=== PATIENT | male | born 1980 | race Caucasian/White ===

== ENCOUNTER → 2020-11-23 09:17 | Outpatient (CLI) | payer BC, SELFPAY ==
[2020-11-23 10:09] LABS: Absolute Lymphocyte Count 1.83 X10^3/uL (0.83-4.51); Absolute Neutrophil Count 4.1 X10^3/uL (2.0-7.7); Basophil# 0.05 X10^3/uL; Basophil% 0.8 % (0-1); Eosinophils% 1.5 % (0-5); Hematocrit 43.1 % (40-54); Hemoglobin 14.6 g/dL (13.0-16.5); Lymphocyte # 1.83 X10^3/ul (4.0); Lymphocyte % 27.9 % (19-41); Mean Corp Hgb Conc 33.9 g/dL (32-36); Mean Corpuscular Hgb 27.9 pg (27.0-32.0); Mean Corpuscular Volume 82.4 fL (80-94); Mean Platelet Vol. 8.7 fl (6.2-12.0); Monocyte# 0.46 X10^3/uL; NRBC Flagged by Analyzer 0 % (0-5); Neutrophil # 4.11 X10^3/uL (2.7-7.7); Neutrophil % 62.5 % (47-70); Platelet Count 228 K/mm3 (150-450); RBC Distribution Width CV 12.5 % (11.6-14.6); RBC Distribution Width SD 37.5 fl (35.1-43.9); Red Blood Count 5.23 M/mm3 (4.6-6.2); White Blood Count 6.6 K/mm3 (4.4-11.0)
[2020-11-23 10:33] LABS: AST(SGOT) 17 U/L (15-37); Alanine Aminotransfer ALT/SGPT 25 U/L (16-61); Albumin, Serum 3.6 g/dL (3.2-5.0); Alkaline Phosphatase 54 U/L (45-117); Anion Gap 6 (5-15); BUN 20 mg/dL (7-18); BUN/Creat Ratio 22.8 RATIO (10-20); Bilirubin, Direct 0.28 mg/dL (0.00-0.30); Calcium,Total 9.3 mg/dL (8.5-10.1); Chloride 106 mmol/L (98-107); Creatinine, Serum 0.88 mg/dL (0.70-1.30); EST Glomerular Filtration Rate 102 mL/min (>60); Est Glom Filt Rate - Afr Amer 123 mL/min (>60); Globulin 3.8 g/dL (2.2-4.2); Glucose 125 mg/dL (74-106); Potassium 3.9 mmol/L (3.5-5.1); Protein, Total 7.4 g/dL (6.4-8.2); Sodium Level 140 mmol/L (136-145)
[2020-11-23 11:06] LABS: Hepatitis B Surface Antibody Non-Reactive; Hepatitis B Surface Antigen Non-Reactive (Nonreactive); Hepatitis C Antibody Non-Reactive (Nonreactive)
[2020-11-29 03:06] LABS: QNTFERON TB Mitogen Value > 10.00 IU/mL (.); QNTFERON TB Nil Value 0.05 IU/mL (.); QNTFERON TB1+ Ag Value 0.21 IU/mL (.); QNTFERON TB2+ Ag Value 0.55 IU/mL (.)
[2020-11-29 14:56] LABS: Hepatitis B Core Ab Total Negative (Negative); QNTIFERON TB Positive Criteria Positive (Negative)
== END ==
PROVIDERS: Referring Provider Dermatology; Visit Provider Dermatology
DX: L40.0 Psoriasis vulgaris (principal); Z79.899 Other long term (current) drug therapy
CPT/HCPCS: 36415; 80048; 80076; 85025; 86480; 86704; 86706; 86803; 87340

== ENCOUNTER → 2022-09-26 | Outpatient (CLI) | payer BC, SELFPAY ==
[2022-09-29 12:08] LABS: QNTFERON TB Mitogen Value > 10.00 IU/mL (.); QNTFERON TB Nil Value 0.02 IU/mL (.); QNTFERON TB1+ Ag Value 0.05 IU/mL (.); QNTFERON TB2+ Ag Value 0.06 IU/mL (.)
[2022-09-29 14:21] LABS: QNTIFERON TB Positive Criteria Negative (Negative)
== END | disposition home or self-care (01) ==
LOC: MTLAB 09:15
PROVIDERS: Referring Provider Dermatology; Visit Provider Dermatology
DX: L40.0 Psoriasis vulgaris (principal); Z79.899 Other long term (current) drug therapy
CPT/HCPCS: 36415; 86480

== ENCOUNTER → 2025-09-09 | Outpatient (CLI) | payer BC, SELFPAY ==
--- OUTSIDE RECORDS SUMMARY | 2025-09-09 09:17 | XMS RPT_ITS | CCD ---
Author Organization [facility] Inform ion Partnership [facility] Care Team Providers Care Clinical Resource Director Name Role Phone BALVALERY INGRAM E. Unavailable Unavailable PHYSICIAN, NONE Unavailable Unavailable BALVALERY INGRAM EAlex Unavailable Unavailable PHYSICIAN, NONE Unavailable Unavailable Unavailable Primary Care Provider Unavailabl e Unavailable Primary Care Provider UnavailTASIA Peterson Attending Unavailable PHYSICIAN, NONE Primary Care Unavailable MAU TRAN MD Attending Unavailable MAU TRAN MD Primary Care Unavailable MAU TRAN MD Attending Unavailable MAU TRAN MD Primary Care Unavailable MAU TRAN MD Attending Unavailable MAU TRAN MD Primary Care Unavailable MAU TRAN MD Attending Unavailable Medications Current Medications Medication Drug Class(es) Dates Sig (Normalized) Sig (Original) [id number] 200 actuat albuterol 0.09 mg/actuat metered dose inhaler (1 source) beta2-Adrenergic Agonist Start: 1 take 2 puff(s) by inhalation every four hours as needed for wheezing albuterol HFA (PROVENTIL HFA) 90 mcg/actuation inhaler Indications: Sinobronchitis Inhale 2 Puffs as instructed every 4 hours as needed for wheezing/shortness of breath. 8 g 0 09/18/2021 Active amoxicillin 875 mg oral tablet (1 source) Penicillin-class Antibacterial Start: 4 End: 4 take 1 tablet by mouth twice daily amoxicillin (AMOXIL) 875 mg tablet Indications: Sinobronchitis Take 1 tablet by mouth two times a day for 10 days. 20 tablet 0 01/29/2024 02/08/2024 Active benzonatate 100 mg oral capsule (1 source) Non-narcotic Antitussive Start: 4 End: 4 take 2 capsules by mouth three times daily as needed benzonatate (TESSALON PERLES) 100 mg capsule Indications: Sinobronchitis Take 2 capsules by mouth three times a day as needed for up to 7 days. 42 capsule 0 01/29/2024 02/05/2024 Active chlorpheniramine maleate 4 mg oral tablet (1 source) Histamine-1 Receptor Antagonist Start: 4 End: 4 take 1 tablet by mouth every six hours as needed chlorpheniramine (CHLORTRIMETON) 4 mg tablet Indications: Sinobronchitis Take 1 tablet by mouth every 6 hours as needed for up to 7 days. 28 tablet 0 01/29/2024 02/05/2024 Active Clobetasol Prop-Niacinamide 0.05-4 % OINT (1 source) Clobetasol Prop-Niacinamide 0.05-4 % OINT Apply topically daily As needed 0 Active fluocinonide 0.5 mg/ml topical solution (1 source) Corticosteroid fluocinonide (LIDEX) 0.05 % external solution Apply topically daily Apply topically daily prn 0 Active 1 ml ixekizumab 80 mg/ml auto-injector (1 source) Interleukin-17A Antagonist Start: 4 TALTZ AUTOINJECTOR 80 mg/mL pen tacrolimus 0.001 mg/mg topical ointment (2 sources) Calcineurin Inhibitor Immunosuppressant tacrolimus (PROTOPIC) 0.1 % ointment Apply to affected area. 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 Proteinuria) CKD 2 Kidney damage with mild loss 60-89 of kidney function CKD 3a Mild to moderate loss of kidney 45-59 function CKD 3b Moderate to severe loss of 30-44 of kindey function CKD 4 Severe loss of kidney function 15-29 CKD 5 Kidney failure <15 Note: (go live 2024) the eGFR calculation was updated to the 2020 CKD-EPI creatinine equation without a race factor to calculate the eGFR results. Performed By: #### G FR, BMP #### [address] [place] [address] #### A1C, TSH #### [place] [address] A1C 08-04-2025 Glucose [Mass/Vol] 203 mg/dL Normal [facility] Comment on above: Result Comment: Estimated Average Glucos e calculated by equation ((28.7xA1C)-46.7) Estimated average glucose (eAG) is a calculated value from Hemoglobin A1C and is installation service representative of the average blood glucose level in the last 2-3 month period. Normal range: less than 114 mg/dL Performed By: #### G FR, BMP #### Kim G[address] [place] [address] #### A1C, TSH #### [place] [address] HbA1c (Bld) [Mass fraction] 8.7 % High 4.0-6.0 [facility] Comment on above: Performed By: #### GFR, BMP #### Kim Guf[address] [place] [id number] #### A1C, TSH #### [place] [address] BMPon 08-04-2025 BUN/Creatinine Ratio 31 ratio High 7-27 [facility] Comment on above: Performed By: #### GFR, BMP #### Kim [address] [place], [place] [address] #### A1C, TSH #### [facility] [address] [place] [address] Calcium [Mass/Vol] 9.3 mg/dL Normal 8.4-10.2 [facility] Comment on above: Performed By: #### GFR, BMP #### Kim Guf[address] [place] [id number] #### A1C, TSH #### [facility] [address] [place] [address] Chloride [Moles/Vol] 99 mmol/L Normal 98-107 [facility] Comment on above: Performed By: #### GFR, BMP #### Kim Guffey [address] [place] [id number] #### A1C, TSH #### [address] [address] CO2 [Moles/Vol] 31 mmol/L High 22-29 [facility] Comment on above: Performed By: #### GFR, BMP #### Kim Guf[address] [place] [id number] #### A1C, TSH #### [address] [address] Creatinine [Mass/Vol] 0.72 mg/dL Normal 0.67-1.17 [facility] Comment on above: Performed By: #### GFR, BMP #### Kim Guf[address] [place] [id number] #### A1C, TSH #### [address] [address] Electrolyte Balance 7.0 mEq/L Normal 4.0-15.0 [facility] Comment on above: Performed By: #### GFR, BMP #### Kim Guf[address] [place] [id number] #### A1C, TSH #### [address] [address] Glucose [Mass/Vol] 284 mg/dL High 70-105 [facility] Comment on above: Performed By: #### GFR, BMP #### Kim Guf[address] [place] [id number] #### A1C, TSH #### [facility] [address] [place] [address] Potassium [Moles/Vol] 4.1 mmol/L Normal 3.5-5.1 [facility] Comment on above: Performed By: #### GFR, BMP #### Kim Guf[address] [place] [id number] #### A1C, TSH #### [facility] [address] [place] [address] Sodium [Moles/Vol] 137 mmol/L Normal 136-145 [facility] Comment on above: Performed By: #### GFR, BMP #### Kim Guf[address] [place] [id number] #### A1C, TSH #### [place] [address] Urea nitrogen [Mass/Vol] 22 mg/dL High 7-18 [facility] Comment on above: Performed By: #### GFR, BMP #### Kim G[address] [place] [id number] #### A1C, TSH #### [place] [address] TSHon 08-04-2025 TSH 3.355 mIU/mL Normal 0.550-4.78 0 [facility] Comment on above: Performed By: #### GFR, BMP #### Kim [address] [place] [id number] #### A1C, TSH #### [place] [id number] .GFRon 04-29-2025 Estimated Glomerular Filtration Rate 117 ml/min/1.73sqm Normal [facility] Comment on above: Result Comment: Stages of Chronic Kidney Disease (CKD) Stage Description eGFR(ml/min/1.73 sq.m.) CKD 1 Normal kidney function or >=90 normal kindney function with possible kidney damage (ex. Proteinuria) CKD 2 Kidney damage with mild loss 60-89 of kidney function CKD 3a Mild to moderate loss of kidney 45-59 function CKD 3b Moderate to severe loss of 30-44 of kindey function CKD 4 Severe loss of kidney function 15-29 CKD 5 Kidney failure <15 Note: (go live 2024) the eGFR calculation was updated to the 2020 CKD-EPI creatinine equation without a race factor to calculate the eGFR results. Performed By: #### G FR, BMP #### Kim Guf[address] [place] [id number] #### A1C, TSH #### [place] [address] A1Con 04-29-2025 Glucose [Mass/Vol] 226 mg/dL Normal [facility] Comment on above: Result Comment: Estimated Average Glucos e calculated by equation ((28.7xA1C)-46.7) Estimated average glucose (eAG) is a calculated value from Hemoglobin A1C and is installation service representative of the average blood glucose level in the last 2-3 month period. Normal range: less than 114 mg/dL Performed By: #### G FR, BMP #### Kim Guf[address] [place] [address] #### A1C, TSH #### [place] [address] HbA1c (Bld) [Mass fraction] 9.5 % High 4.0-6.0 [facility] Comment on above: Performed By: #### GFR, BMP #### Kim Guf[address] [place] [id number] #### A1C, TSH #### [place] [address] BMPon 04-29-2025 BUN/Creatinine Ratio 28 ratio High 7-27 [facility] Comment on above: Performed By: #### GFR, BMP #### Kim Guf[address] [place] [address] #### A1C, TSH #### [place] [address] Calcium [Mass/Vol] 9.1 mg/dL Normal 8.4-10.2 [facility] Comment on above: Performed By: #### GFR, BMP #### Kim [address] [place], [place] [address] #### A1C, TSH #### [facility] [address] [place] [address] Chloride [Moles/Vol] 102 mmol/L Normal 98-107 [facility] Comment on above: Performed By: #### GFR, BMP #### Kim Guffey [address] [place] [id number] #### A1C, TSH #### [facility] [address] [place] [address] CO2 [Moles/Vol] 28 mmol/L Normal 22-29 [facility] Comment on above: Performed By: #### GFR, BMP #### Kim Guffey [address] [place] [id number] #### A1C, TSH #### [address] [address] Creatinine [Mass/Vol] 0.67 mg/dL Normal 0.67-1.17 [facility] Comment on above: Performed By: #### GFR, BMP #### Kim Guffe[address] [place] [id number] #### A1C, TSH #### [address] [address] Electrolyte Balance 7.0 mEq/L Normal 4.0-15.0 [facility] Comment on above: Performed By: #### GFR, BMP #### Kim Guf[address] [place] [id number] #### A1C, TSH #### [address] [address] Glucose [Mass/Vol] 262 mg/dL High 70-105 [facility] Comment on above: Performed By: #### GFR, BMP #### Kim Guffe[address] [place] [id number] #### A1C, TSH #### [address] [address] Potassium [Moles/Vol] 4.1 mmol/L Normal 3.5-5.1 [facility] Comment on above: Performed By: #### GFR, BMP #### Kim [address] [place], [place] [address] #### A1C, TSH #### [facility] [address] [place] [address] Sodium [Moles/Vol] 137 mmol/L Normal 136-145 [facility] Comment on above: Performed By: #### GFR, BMP #### Kim Guffey [address] [place] [id number] #### A1C, TSH #### [facility] [address] [place] [address] Urea nitrogen [Mass/Vol] 19 mg/dL High 7-18 [facility] Comment on above: Performed By: #### GFR, BMP #### Kim G[address] [place], [place] [address] #### A1C, TSH #### [address] [address] .GFRon 01-26-2025 Estimated Glomerular Filtration Rate 116 ml/min/1.73sqm Normal [facility] Comment on above: Result Comment: Stages of Chronic Kidney Disease (CKD) Stage Description eGFR(ml/min/1.73 sq.m.) CKD 1 Normal kidney function or >=90 normal kindney function with possible kidney damage (ex. Proteinuria) CKD 2 Kidney damage with mild loss 60-89 of kidney function CKD 3a Mild to moderate loss of kidney 45-59 function CKD 3b Moderate to severe loss of 30-44 of kindey function CKD 4 Severe loss of kidney function 15-29 CKD 5 Kidney failure <15 Note: (go live 2024) the eGFR calculation was updated to the 2020 CKD-EPI creatinine equation without a race factor to calculate the eGFR results. Performed By: #### A 1C #### [address] [address] #### CMP, GFR #### Kim [address] [place], [place] [address] A1Con 01-26-2025 Glucose [Mass/Vol] 269 mg/dL Normal [facility] Comment on above: Result Comment: Estimated Average Glucos e calculated by equation ((28.7xA1C)-46.7) Estimated average glucose (eAG) is a calculated value from Hemoglobin A1C and is installation service representative of the average blood glucose level in the last 2-3 month period. Normal range: less than 114 mg/dL Performed By: #### A 1C #### [place] [address] #### CMP, GFR #### Kim Guf[address] [place], [place] [address] HbA1c (Bld) [Mass fraction] 11.0 % High 4.0-6.0 [facility] Comment on above: Performed By: #### A1C #### [place] [address] #### CMP, GFR #### Kim G[address] [place], [place] [address] CMPon 01-26-2025 Albumin Level 3.5 G/dL Normal 3.5-5.0 [facility] Comment on above: Performed By: #### A1C #### [place] [address] #### CMP, GFR #### Kim Guf[address] [place], [place] [address] Albumin/Globul in [Mass ratio] 1.0 {ratio} Low 1.1-2.5 [facility] Comment on above: Performed By: #### A1C #### [place] [address] #### CMP, GFR #### Kim Guf[address] [place], [place] [address] ALP [Catalytic activity/Vol] 62 U/L Normal 40-135 [facility] Comment on above: Performed By: #### A1C #### [place] [address] #### CMP, GFR #### Kim [address] [place], [place] [address] ALT [Catalytic activity/Vol] 29 U/L Normal 16-63 [facility] Comment on above: Performed By: #### A1C #### [place] [address] #### CMP, GFR #### Kim G[address] [place], [place] [address] AST [Catalytic activity/Vol] 16 U/L Normal 10-40 [facility] Comment on above: Performed By: #### A1C #### [place] [address] #### CMP, GFR #### Kim [address] [place], [place] [address] Bili Total 1.6 mg/dL High 0.2-1.0 [facility] Comment on above: Result Comment: Use of this assay is not recommended for patients undergoing treatment with eltrombopag due to the potential for falsely elevated results. Performed By: #### A 1C #### [place] [address] #### CMP, GFR #### Kim [address] [place], [place] [address] BUN/Creatinine Ratio 23 ratio Normal 7-27 [facility] Comment on above: Performed By: #### A1C #### [place] [address] #### CMP, GFR #### Kim G[address] [place], [place] [address] Calcium [Mass/Vol] 9.5 mg/dL Normal 8.4-10.2 [facility] Comment on above: Performed By: #### A1C #### [place] [address] #### CMP, GFR #### Kim Guf[address] [place], [place] [address] Chloride [Moles/Vol] 101 mmol/L Normal 98-107 [facility] Comment on above: Performed By: #### A1C #### [place] [address] #### CMP, GFR #### Kim [address] [place], [place] [address] CO2 [Moles/Vol] 28 mmol/L Normal 22-29 [facility] Comment on above: Performed By: #### A1C #### [facility] [address] [place] [address] #### CMP, GFR #### Kim [address] [place], [place] [address] Creatinine [Mass/Vol] 0.69 mg/dL Normal 0.67-1.17 [facility] Comment on above: Performed By: #### A1C #### [facility] [address] [place] [address] #### CMP, GFR #### Kim [address] [place], [place] [address] Electrolyte Balance 10.0 mEq/L Normal 4.0-15.0 [facility] Comment on above: Performed By: #### A1C #### [place] [address] #### CMP, GFR #### Kim Guf[address] [place], [place] [address] Globulin 3.6 G/dL Normal 2.7-4.4 [facility] Comment on above: Performed By: #### A1C #### [facility] [address] [place] [address] #### CMP, GFR #### Kim G[address] [place], [place] [address] Glucose [Mass/Vol] 312 mg/dL High 70-105 [facility] Comment on above: Performed By: #### A1C #### [place] [address] #### CMP, GFR #### Kim G[address] [place], [place] [address] Potassium [Moles/Vol] 4.2 mmol/L Normal 3.5-5.1 [facility] Comment on above: Performed By: #### A1C #### [facility] [address] [place] [address] #### CMP, GFR #### Kim Guf[address] [place], [place] [address] Sodium [Moles/Vol] 139 mmol/L Normal 136-145 [facility] Comment on above: Performed By: #### A1C #### [facility] [address] [place] [address] #### CMP, GFR #### Kim Guf[address] [place], [place] [address] Total Protein 7.1 G/dL Normal 6.4-8.2 [facility] Comment on above: Performed By: #### A1C #### [facility] [address] [place] [address] #### CMP, GFR #### Kim Guf[address] [place], [place] [address] Urea nitrogen [Mass/Vol] 16 mg/dL Normal 7-18 [facility] Comment on above: Performed By: #### A1C #### [facility] [address] [place] [address] #### CMP, GFR #### Kim G[address] [place], [place] [address] MALBRon 01-26-2025 U Creatinine 228.6 mg/dL Normal [facility] Comment on above: Performed By: #### GFR, BMP #### Kim [address] [place], [place] [address] #### A1C, TSH #### [address] [address] U Microalb 25.9 mg/L Normal [facility] Comment on above: Performed By: #### GFR, BMP #### Kim [address] [place], [place] [address] #### A1C, TSH #### [facility] [address] [place] [address] U Ratio Alb/Cre 11.3 mg/G Normal 0.0-30.0 [facility] Comment on above: Performed By: #### GFR, BMP #### Kim [address] [place], [place] [address] #### A1C, TSH #### [address] [address] .Auto Diffon 10-27-2024 Basophil, Absolute 0.1 10 3/mcL Normal 0.0-0.3 [facility] Comment on above: Performed By: #### ADIFF, LIPID, ANEU, C MP, GFR, CBC #### Kim [address] [place], [place] [address] #### A1C, HCV1, HIV, TSH #### [address] [address] Basophils/100 WBC (Bld) 0.9 % Normal 0.0-2.5 [facility] Comment on above: Performed By: #### ADIFF, LIPID, ANEU, C MP, GFR, CBC #### Kim Guf[address] [place] [address] #### A1C, HCV1, HIV, TSH #### [address] [address] Eosinophil, Absolute 0.1 10 3/mcL Normal 0.0-0.7 [facility] Comment on above: Performed By: #### ADIFF, LIPID, ANEU, C MP, GFR, CBC #### [facility] [address] [place] [address] #### A1C, HCV1, HIV, TSH #### [address] [address] Eosinophils/10 0 WBC (Bld) 1.2 % Normal 0.0-6.0 [facility] Comment on above: Performed By: #### ADIFF, LIPID, ANEU, C MP, GFR, CBC #### Kim Guf[address] [place] [address] #### A1C, HCV1, HIV, TSH #### [facility] [address] [place] [address] Lymphocyte, Absolute 1.6 10 3/mcL Normal 0.9-4.3 [facility] Comment on above: Performed By: #### ADIFF, LIPID, ANEU, C MP, GFR, CBC #### Kim Guffey [address] [place] [phone] #### A1C, HCV1, HIV, TSH #### [address] [address] Lymphocytes/10 0 WBC (Bld) 24.9 % Normal 20.0-40.0 [facility] Comment on above: Performed By: #### ADIFF, LIPID, ANEU, C MP, GFR, CBC #### Kim Guf[address] [place], [place] [address] #### A1C, HCV1, HIV, TSH #### [address] [address] Monocyte, Absolute 0.5 10 3/mcL Normal 0.1-1.4 [facility] Comment on above: Performed By: #### ADIFF, LIPID, ANEU, C MP, GFR, CBC #### Kim Guffey [address] [place] [phone] #### A1C, HCV1, HIV, TSH #### [address] [address] Monocytes/100 WBC (Bld) 7.6 % Normal 2.0-13.0 [facility] Comment on above: Performed By: #### ADIFF, LIPID, ANEU, C MP, GFR, CBC #### Kim Guffey [address] [place] [phone] #### A1C, HCV1, HIV, TSH #### [address] [address] Neutrophils/10 0 WBC (Bld) 65.4 % Normal 50.0-75.0 [facility] Comment on above: Performed By: #### ADIFF, LIPID, ANEU, C MP, GFR, CBC #### Kim Guffey [address] [place] [phone] #### A1C, HCV1, HIV, TSH #### [address] [address] .GFRon 10-27-2024 Estimated Glomerular Filtration Rate 105 ml/min/1.73sqm Normal [facility] Comment on above: Result Comment: Stages of Chronic Kidney Disease (CKD) Stage Description eGFR(ml/min/1.73 sq.m.) CKD 1 Normal kidney function or >=90 normal kindney function with possible kidney damage (ex. Proteinuria) CKD 2 Kidney damage with mild loss 60-89 of kidney function CKD 3a Mild to moderate loss of kidney 45-59 function CKD 3b Moderate to severe loss of 30-44 of kindey function CKD 4 Severe loss of kidney function 15-29 CKD 5 Kidney failure <15 Note: (go live 2024) the eGFR calculation was updated to the 2020 CKD-EPI creatinine equation without a race factor to calculate the eGFR results. Performed By: #### G FR, BMP #### Kim Guf[address] [place] [address] #### A1C, TSH #### [place] [address] .NEUABSon 10-27-2024 Neutrophil, Absolute 4.1 10 3/mcL Normal 2.3-8.1 [facility] Comment on above: Performed By: #### ADIFF, LIPID, ANEU, C MP, GFR, CBC #### [facility] [address] [place] [address] #### A1C, HCV1, HIV, TSH #### [place] [address] A1Con 10-27-2024 Glucose [Mass/Vol] 321 mg/dL Normal [facility] Comment on above: Result Comment: Estimated Average Glucos e calculated by equation ((28.7xA1C)-46.7) Estimated average glucose (eAG) is a calculated value from Hemoglobin A1C and is installation service representative of the average blood glucose level in the last 2-3 month period. Normal range: less than 114 mg/dL Performed By: #### G FR, BMP #### Kim Guffey [address] [place] [address] #### A1C, TSH #### [place] [address] HbA1c (Bld) [Mass fraction] 12.8 % High 4.0-6.0 [facility] Comment on above: Performed By: #### GFR, BMP #### Kim Guffey [address] [place] [phone] #### A1C, TSH #### [place] [address] CBCon 02-04-2025 Erythrocyte distribution width (RBC) [Ratio] 12.6 % Normal 11.5-15.5 [facility] Comment on above: Performed By: #### ADIFF, LIPID, ANEU, C MP, GFR, CBC #### Hamer Guffey [address] [place] [phone] #### A1C, HCV1, HIV, TSH #### [place] [address] Hematocrit (Bld) [Volume fraction] 46.6 % Normal 40.0-52.0 [facility] Comment on above: Performed By: #### ADIFF, LIPID, ANEU, C MP, GFR, CBC #### [facility] [address] [place] [address] #### A1C, HCV1, HIV, TSH #### [place] [address] Hgb 15.8 G/dL Normal 13.0-17.5 [facility] Comment on above: Performed By: #### ADIFF, LIPID, ANEU, C MP, GFR, CBC #### [facility] [address] [place] [address] #### A1C, HCV1, HIV, TSH #### [place] [address] MCH (RBC) [Entitic mass] 28.1 pg Normal 27.0-33.0 [facility] Comment on above: Performed By: #### ADIFF, LIPID, ANEU, C MP, GFR, CBC #### Kim Guffey [address] [place] [address] #### A1C, HCV1, HIV, TSH #### [place] [address] MCHC 33.9 G/dL Normal 32.0-36.0 [facility] Comment on above: Performed By: #### ADIFF, LIPID, ANEU, C MP, GFR, CBC #### [facility] [address] [place] [phone] #### A1C, HCV1, HIV, TSH #### [place] [id number] MCV (RBC) [Entitic vol] 82.9 fL Normal 81.0-100.0 [facility] Comment on above: Performed By: #### ADIFF, LIPID, ANEU, C MP, GFR, CBC #### Kim Guffe[address] [place] [address] #### A1C, HCV1, HIV, TSH #### [place] [address] Platelet 197 10 3/mcL Normal 150-450 [facility] Comment on above: Performed By: #### ADIFF, LIPID, ANEU, C MP, GFR, CBC #### [facility] [address] [place] [address] #### A1C, HCV1, HIV, TSH #### [place] [address] Platelet mean volume (Bld) [Entitic vol] 7.4 fL Normal 6.4-10.5 [facility] Comment on above: Performed By: #### ADIFF, LIPID, ANEU, C MP, GFR, CBC #### [facility] [address] [place] [address] #### A1C, HCV1, HIV, TSH #### [place] [address] RBC 5.62 10 6/mcL Normal 4.50-6.00 [facility] Comment on above: Performed By: #### ADIFF, LIPID, ANEU, C MP, GFR, CBC #### [facility] [address] [place] [address] #### A1C, HCV1, HIV, TSH #### [place] [address] WBC 6.2 10 3/mcL Normal 4.5-10.8 [facility] Comment on above: Performed By: #### ADIFF, LIPID, ANEU, C MP, GFR, CBC #### [facility] [address] [place] [address] #### A1C, HCV1, HIV, TSH #### [address] [address] [facility] Albumin Level 3.5 G/dL Normal 3.5-5.0 [facility] Comment on above: Performed By: #### GFR, BMP #### Kim Guffey [address] [place] [id number] #### A1C, TSH #### [place] [address] Albumin/Globul in [Mass ratio] 1.0 {ratio} Low 1.1-2.5 [facility] Comment on above: Performed By: #### GFR, BMP #### Kim Guffey [address] [place] [phone] #### A1C, TSH #### [place] [address] ALP [Catalytic activity/Vol] 60 U/L Normal 40-135 [facility] Comment on above: Performed By: #### GFR, BMP #### Kim Guffey [address] [place] [address] #### A1C, TSH #### [place] [id number] ALT [Catalytic activity/Vol] 41 U/L Normal 16-63 [facility] Comment on above: Performed By: #### GFR, BMP #### Kim Guffey [address] [place] [id number] #### A1C, TSH #### [place] [id number] AST [Catalytic activity/Vol] 24 U/L Normal 10-40 [facility] MASSILLON Comment on above: Performed By: #### GFR, BMP #### Kim Guffey [address] [place] [id number] #### A1C, TSH #### [place] [id number] Bili Total 1.6 mg/dL High 0.2-1.0 KIM MASSILLON Comment on above: Result Comment: Use of this assay is not recommended for patients undergoing treatment with eltrombopag due to the potential for falsely elevated results. Performed By: #### G FR, BMP #### Kim Guffey [address] [place] [id number] #### A1C, TSH #### [place] [address] BUN/Creatinine Ratio 15 ratio Normal 7-27 KIM MASSILLON Comment on above: Performed By: #### GFR, BMP #### Kim Guffey [address] [place] [id number] #### A1C, TSH #### [place] [address] Calcium [Mass/Vol] 9.2 mg/dL Normal 8.4-10.2 KIM MASSILLON Comment on above: Performed By: #### GFR, BMP #### Kim Guffey [address] [place] [id number] #### A1C, TSH #### [place] [address] Chloride [Moles/Vol] 99 mmol/L Normal 98-107 KIM MASSILLON Comment on above: Performed By: #### GFR, BMP #### Kim Guffey [address] [place] [id number] #### A1C, TSH #### [place] [id number] CO2 [Moles/Vol] 29 mmol/L Normal 22-29 KIM MASSILLON Comment on above: Performed By: #### GFR, BMP #### Kim Guffey [address] [place] [address] #### A1C, TSH #### [place] [id number] Creatinine [Mass/Vol] 0.92 mg/dL Normal 0.70-1.30 KIM MASSILLON Comment on above: Result Comment: Testing performed on [employer] Dimension EXL analyzer using a modified kinetic Sivkaumar technique. Performed By: #### G FR, BMP #### Kim Guffey [address] [place] [id number] #### A1C, TSH #### [facility] [address] [place], [place] [address] Electrolyte Balance 8.0 mEq/L Normal 4.0-15.0 KIM MASSILLON Comment on above: Performed By: #### GFR, BMP #### Kim Guffey [address] [place], [place] [address] #### A1C, TSH #### [facility] [address] [place] [address] Globulin 3.6 G/dL Normal KIM MASSILLON Comment on above: Performed By: #### GFR, BMP #### Kim Guffey [address] [place] [id number] #### A1C, TSH #### [facility] [address] [place] [address] Glucose [Mass/Vol] 369 mg/dL High 70-105 KIM MASSILLON Comment on above: Performed By: #### GFR, BMP #### Kim Guffey [address] [place] [id number] #### A1C, TSH #### [facility] [address] [place] [address] Potassium [Moles/Vol] 4.3 mmol/L Normal 3.5-5.1 KIM MASSILLON Comment on above: Performed By: #### GFR, BMP #### Kim Guffey [address] [place] [id number] #### A1C, TSH #### [address] [address] Sodium [Moles/Vol] 136 mmol/L Normal 136-145 KIM MASSILLON Comment on above: Performed By: #### GFR, BMP #### Kim Guffey [address] [place], [place] [address] #### A1C, TSH #### [facility] [address] [place] [address] Total Protein 7.1 G/dL Normal 6.4-8.2 KIM MASSILLON Comment on above: Performed By: #### GFR, BMP #### Kim Guffey [address] [place], [place] [address] #### A1C, TSH #### [address] [address] Urea nitrogen [Mass/Vol] 14 mg/dL Normal 7-18 [facility] Comment on above: Performed By: #### GFR, BMP #### Kim Guffey [address] [place] [address] #### A1C, TSH #### [facility] [address] [place] [address] HCVon 10-27-2024 Hep C Ab Non-Reactive Normal Non-Reacti ve [facility] Comment on above: Performed By: #### GFR, BMP #### Kim Guffey [address] [place] [address] #### A1C, TSH #### [place] [address] Hep C Ab Int Normal [facility] Comment on above: Result Comment: Nonreactive: Samples wit h a value < 0.80 are considered nonreactive (negative) for antibodies to HCV. A negative test result does not exclude the possibility of exposure to or infection with HCV. HCV antibodies may be undetectable in some stages of the infection and in some clinical conditions. See Interp Performed By: #### G FR, BMP #### Kim Guffey [address] [place] [address] #### A1C, TSH #### [place] [address] HIVon 10-27-2024 HIV 1/2 Ab Non-Reactive Normal Non-Reacti [facility] Comment on above: Result Comment: Specimen is negative for anti-HIV-1 and anti-HIV-2. Performed By: #### G FR, BMP #### Kim Guffey [address] [place] [address] #### A1C, TSH #### [place] [address] LIPIDon 10-27-2024 Cholesterol [Mass/Vol] 148 mg/dL Normal 0-200 [facility] Comment on above: Result Comment: Cholesterol Reference In terval: Less than 200 Desirable 200-239 Borderline high risk 240 and above High risk Performed By: #### G FR, BMP #### Kim Guffey [address] [place] [id number] #### A1C, TSH #### [facility] [address] [place] [address] Cholesterol in HDL [Mass/Vol] 52 mg/dL Normal 40-60 KIM MASSILLON Comment on above: Performed By: #### GFR, BMP #### Kim Guffey [address] [place] [id number] #### A1C, TSH #### [facility] [address] [place], [place] [id number] Cholesterol in LDL [Mass/Vol] 75 mg/dL Normal 0-130 KIM MASSILLON Comment on above: Performed By: #### GFR, BMP #### Kim Guffey [address] [place] [address] #### A1C, TSH #### [place] [address] Triglyceride [Mass/Vol] 106 mg/dL Normal 0-150 KIM MASSILLON Comment on above: Performed By: #### GFR, BMP #### Kim Guffey [address] [place] [address] #### A1C, TSH #### [place] [address] TSHon 10-27-2024 TSH 2.544 mIU/mL Normal 0.550-4.78 0 KIM MASSILLON Comment on above: Performed By: #### GFR, BMP #### Kim Guffey [address] [place] [address] #### A1C, TSH #### [place] [address] CNOVon 01-29-2024 CNOV Office Visit ([facility] ) JEFFREY SOTO ([id number]) 1980 M Date Time Provider Department 01/29/24 11:55 AM TASIA CARDOZA [facility] During your visit today, we recorded the following information about you: Temperature Pulse Respiration Blood pressure 97.1 degrees 87/minute 20/minute 152/100 Weight 176.3 kg Tasia Cardoza DO 01/29/2024 12:55 PM Signed Jeffrey Soto is a 43 year old MALE who presents with Cough (Productive /Discolored //Started 3 days ago ), Chest Congestion (Started 3 days aog), and Breathing Problem (Wheezing /Started 3 days ago /) HPI History reviewed. No pertinent past medical history. There is no problem list on file for this patient. Current Outpatient Medications Medication Sig Dispense Refill TALTZ AUTOINJECTOR 80 mg/mL pen tacrolimus (PROTOPIC) 0.1 % ointment Apply to affected area. amoxicillin (AMOXIL) 875 mg tablet Take 1 tablet by mouth two times a day for 10 days. 20 tablet 0 benzonatate (TESSALON PERLES) 100 mg capsule Take 2 capsules by mouth three times a day as needed for up to 7 days. 42 capsule 0 chlorpheniramine (CHLORTRIMETON) 4 mg tablet Take 1 tablet by mouth every 6 hours as needed for up to 7 days. 28 tablet 0 albuterol HFA (PROVENTIL HFA) 90 mcg/actuation inhaler Inhale 2 Puffs as instructed every 4 hours as needed for wheezing/shortness of breath. (Patient not taking: Reported on 01/29/2024) 8 g 0 No current facility-administered medications for this visit. Social History Tobacco Use Smoking status: Never Smokeless tobacco: Never Vaping Use Vaping Use: Never used Substance Use Topics Alcohol use: Yes Alcohol/week: 6.0 standard drinks of alcohol Types: 6 Cans of beer per week Drug use: Never Alcohol Use: Approximately 3.6 oz/week [which includes 6 Cans of beer per week] Tobacco Use: Never History reviewed. No pertinent family history. Review of Systems Constitutional: Positive for chills, fever and malaise/fatigue. HENT: Positive for congestion, sinus pain and sore throat. Respiratory: Positive for cough, sputum production, shortness of breath and wheezing. All other systems reviewed and are negative. BP 152/100 Pulse 87 Temp (Src) 97.1 (Temporal) Resp 20 Wt 388 lb 9.6 oz (176.3kg) SpO2 96% Physical Exam Nursing note reviewed. Exam conducted with a oakes machine operator present. Constitutional: Appearance: Normal appearance. HENT: Head: Normocephalic. Left Ear: Tympanic membrane normal. Nose: Congestion and rhinorrhea present. Mouth/Throat: Pharynx: Posterior oropharyngeal erythema present. Eyes: Extraocular Movements: Extraocular movements intact. Conjunctiva/sclera: Conjunctivae normal. Pupils: Pupils are equal, round, and reactive to light. Cardiovascular: Rate and Rhythm: Normal rate and regular rhythm. Pulses: Normal pulses. Heart sounds: Normal heart sounds. Pulmonary: Effort: Pulmonary effort is normal. Breath sounds: Normal breath sounds. Abdominal: General: Bowel sounds are normal. Musculoskeletal: General: Normal range of motion. Lymphadenopathy: Cervical: Cervical adenopathy present. Skin: General: Skin is warm. Capillary Refill: Capillary refill takes 2 to 3 seconds. Neurological: General: No focal deficit present. Psychiatric: Mood and Affect: Mood normal. ASSESSMENT/PLAN: 1. Sinobronchitis - ICD9: 473.9, 490, ICD10: J32.9, J40 - AMOXICILLIN 875 MG TABLET - BENZONATATE 100 MG CAPSULE - CHLORPHENIRAMINE 4 MG TABLET Tasia Cardoza Referring Provider: SELF [200] Allergies As of Date: 01/29/2024 (No Known Allergies) Date Reviewed: 01/29/2024 Reviewed by: Tasia Cardoza DO - Fully Assessed Reason for Visit: Cough [28] Cmt: Productive Discolored Started 3 days ago Chest Congestion [236] Cmt: Started 3 days aog Breathing Problem [17] Cmt: Wheezing Started 3 days ago Primary Visit Diagnosis:Sinobronchitis [J32.9, J40] Order(s):amoxicillin (AMOXIL) 875 mg tabletTake 1 tablet by mouth two times a day for 10 days.Disp: 20 tabletRfl: 0 benzonatate (TESSALON PERLES) 100 mg capsuleTake 2 capsules by mouth three times a day as needed for up to 7 days.Disp: 42 capsuleRfl: 0 chlorpheniramine (CHLORTRIMETON) 4 mg tabletTake 1 tablet by mouth every 6 hours as needed for up to 7 days.Disp: 28 tabletRfl: 0 Prescriptions as of 01/29/2024 - TALTZ AUTOINJECTOR 80 mg/mL pen - tacrolimus (PROTOPIC) 0.1 % ointment Apply to affected area. - amoxicillin (AMOXIL) 875 mg tablet Take 1 tablet by mouth two times a day for 10 days. - benzonatate (TESSALON PERLES) 100 mg capsule Take 2 capsules by mouth three times a day as needed for up to 7 days. - chlorpheniramine (CHLORTRIMETON) 4 mg tablet Take 1 tablet by mouth every 6 hours as needed for up to 7 days. - albuterol HFA (PROVENTIL HFA) 90 mcg/actuation inhaler Inhale 2 Puffs as instructed every 4 hours as neede (more content not included)... [facility] DATE OF SERVICE: CHIEF COMPLAINT: Patient seen and evaluated by Yolanda Bragg PA-C for chief complaint of toe laceration. HISTORY OF PRESENT ILLNESS: Patient states he tripped in his garage and caught his foot, stepping on a, he thinks was, car seat. It forcefully pulled his 3rd and 4th toes of his left foot up and back over, hyperextending them to the point where it tore the skin in the creases on the plantar aspect of the 2 toes, so he comes in for evaluation. He denies any other symptoms or complaints, and he states that they are not painful. He is not concerned for any fractures. PAST MEDICAL HISTORY: Reviewed per nursing notes and considered. SOCIAL HISTORY: Denies tobacco. Drinks alcohol weekly. REVIEW OF SYSTEMS: Per HPI, otherwise unremarkable. PHYSICAL EXAMINATION: This is a well-appearing 40-year-old male in no acute distress. His vitals are blood pressure 143/101, pulse 79, respirations 16, afebrile, pulse oximetry 97% on room air. Examination of his left foot, he has wounds noted on the plantar side of his 3rd and 4th toes corresponding with the creases of the interphalangeal joint of each of those digits. The [facility] PATIENT NAME: JEFFREY SOTO Dr. [facility] MEDICAL REC #: [id number] [place] [address] [facility] one on the 3rd toe is larger, measuring 1 cm and deeper with a depth of 1 to 2 mm. Examined in a bloodless field, it extends fully through the epidermal layer, does not extend significantly into subcutaneous tissue. The wound on the plantar aspect of the 4th toe is less than 0.5 cm and through the epidermal layer as well. Also examined in a bloodless field. The rest of the toe is nontender, appears normal with brisk capillary refill less than 2 seconds. Pressure at the end of the toes as well as on the dorsum of the toes does not elicit any pain. Movement of the toes does not elicit pain. The rest of the foot is nontender. Neurovascularly intact. MEDICAL DECISION MAKING: At this point in time, I discussed wound care options with the patient. I do recommend some type of closure of the wound on the 3rd toe. We discussed the benefit and risks of Dermabond versus sutures. The patient opts for Dermabond. We did discuss the increased risk of infection. He recently started an immune modulating medicine for his psoriasis, Cosentyx; therefore, we will place him on prophylactic antibiotics. PROCEDURE: The wound is irrigated copiously with 100 mL by the nurse, another 200 mL of normal saline irrigation performed by myself. The wound was then dried [facility] PATIENT NAME: JEFFREY SOTO Dr. [facility]av[facility] MEDICAL REC #: [id number] [place] [address] [facility] thoroughly, prepped with an alcohol swab, and 3 layers of Dermabond are placed and the wound edges approximated well. The wound on the 4th toe was dressed with bacitracin and dressed with a gauze dressing. Patient tolerated it well. Estimated blood loss minimal. Complications none. DISCHARGE DIAGNOSES: 1. Acute 1-cm laceration left 3rd toe repaired with Dermabond. 2. Chronic psoriasis with immunosuppressive treatment. PLAN: He is prescribed prophylactic Keflex. Instructed on wound care. Keep it dry for at least 7 days and given a referral to establish a PCP. We did discuss his elevated blood pressure, and he is going to follow closely with the medical provider at his work and establish with a PCP. Yolanda Bragg PA-C /[id number] SSI File#: [id number] [facility] PATIENT NAME: JEFFREY SOTO [address] [facility] [address] Benavides MEDICAL REC #: [id number] [place] [address] [facility] END OF DOCUMENT / CHANGE LOG FOLLOWS Last Edited By Elec. Signed By Yolanda Bragg PA-C, Shannon PA-C #QUISH on 04/10/2021 18:49 ET on 04/10/2021 18:49 ET Revision Number - 2 Verified/Reviewed by 04/10/21 1849 JORGE [facility] PATIENT NAME: JEFFREY SOTO [address] [facility] [address] [facility]ides MEDICAL REC #: [id number] [place] [address] [facility] Normal [facility] Fungal Ab Panel (ID)on 12-15 A. flavus Ab Negative Normal Negative [facility] Comment on above: Performed By: #### FIDO #### The performing lab is in the report. #### QTF #### [address] A. fumigatus Ab Negative Normal Negative [facility] Comment on above: Result Comment: Interpretive Criteria: Negative: Antibody not detected Positive: Antibody detected A positive result is represented by 1 or more precipitin bands, and may indicate fungus ball, allergic bronchopulmonary aspergillosis (JOSHUA) or invasive aspergillosis. Generally, the appearance of 3-4 bands indicates either fungus ball or JOSHUA. Performed By: #### F SHIRA #### The performing lab is in the report. #### QTF #### [address] A. niger Ab Negative Normal Negative [facility] Comment on above: Performed By: #### FIDO #### The performing lab is in the report. #### QTF #### [facility] [address] [place], [place] Blastomyces Ab Negative Normal Negative [facility] Comment on above: Result Comment: Interpretive Criteria: Negative: Antibody not detected Positive: Antibody detected A positive result is diagnostic of active or recent blastomycosis and is found in approximately 80% of proven cases of blastomycosis. Performed By: #### F SHRIA #### The performing lab is in the report. #### QTF #### [facility] [address] [place], [place] Mary Ab Negative Normal Negative [facility] Comment on above: Result Comment: Interpretive Criteria: Negative: Antibody Not Detected Positive: Antibody Detected Detection of antibody recognizing Mary is 70-80% specific for systemic candidiasis, and sensitivity is related to the immunocompetence of the patient. The immunocompromised patient with overwhelming candidiasis may not exhibit detectable Mary antibody. Performed By: #### F SHIRA #### The performing lab is in the report. #### QTF #### [address] [address] Coccidiodes Ab Negative Normal Negative [facility] Comment on above: Result Comment: Interpretive Criteria: Negative: Antibody Not Detected Positive: Antibody Detected The immunodiffusion (ID) procedure correlates both in sensitivity and clinical utility with the CF test. The ID test, which detects IgG directed to the F antigen, becomes positive within 4 weeks after infection and remains positive throughout clinically active disease. It is most useful in confirming the specificity of low CF titers, where lines of identity are formed with reference antisera. Positive ID reactions are diagnostic for coccidioidomycosis and usually indicate active or recent disease and remain detectable for up to 1 year thereafter. Performed By: #### F SHIRA #### The performing lab is in the report. #### QTF #### [address] [address] Histoplasma Ab Negative Normal Negative [facility] Comment on above: Result Comment: Interpretive Criteria: Negative: Antibody Not Detected Positive: Antibody Detected Positive immunodiffusion (ID) reactions involve one or more specific precipitin bands. Of these bands the first to appear in active histoplasmosis is the M band, which is seen in approximately 70% of proven cases. This band is also seen in some patients with past infections and in 20% of those with recent histoplasmin skin testing. The H band is usually seen in active and progressive histoplasmosis and almost always in the presence of the M band, although it is found less often (approximately 10% of proven cases). Test Performed by Nicky Diaz, [facility], [address] [place] [address] José Miguel Sampson M.D., Ph.D., Director of Laboratories , [place] [id number] Performed By: #### F SHIRA #### The performing lab is in the report. #### QTF #### [facility] [address] [place] [address] Quantiferonon 12-12-2020 Quantiferon Negative Normal Negative [facility] Comment on above: Performed By: #### FIDO #### The performing lab is in the report. #### QTF #### [facility] [address] [place] [address] CR Chest PA/LATon 12-09-2020 CR Chest PA/LAT Patient Name: JEFFREY SOTO Jr Diagnostic Radiology ACCESSION EXAM DATE/TIME PROCEDURE ORDERING PROVIDER [id number] 12/09/2020 10:48 EDT CR Chest PA and LAT JAMAL WALSH CPT code 40694 Reason For Exam (CR Chest PA and LAT) Nonspecific reaction to cell mediated immunity measurement of gamma interferon antigen response without active tuberculosis Report CLINICAL INDICATION: Positive TB test. Frontal and lateral plain films of the chest were obtained. COMPARISON: None FINDINGS: The cardiac silhouette is within normal limits. No focal consolidation is seen within the lungs. No pleural effusion or pneumothorax is identified. IMPRESSION: No acute cardiopulmonary disease. Report Dictated on Final Dictated: 12/09/2020 11:06 am Dictating Physician: MD JOLLEY LAURA Signed Date and Time: 12/09/2020 11:06 am Signed by: MD JOLLEY LAURA Transcribed Date and Time: 12/09/2020 11:06 Normal [facility] XR CHEST (2 VW)on 12-09-2020 Patient Name: JEFFREY SOTO Jr Diagnostic Radiology ACCESSION EXAM DATE/TIME PROCEDURE ORDERING PROVIDER [id number] 12/09/2020 10:48 EDT CR Chest PA & LAT JAMAL WALSH CPT code 32028 Reason For Exam (CR Chest PA & LAT) Nonspecific reaction to cell mediated immunity measurement of gamma interferon antigen response without active tuberculosis Report CLINICAL INDICATION: Positive TB test. Frontal and lateral plain films of the chest were obtained. COMPARISON: None FINDINGS: The cardiac silhouette is within normal limits. No focal consolidation is seen within the lungs. No pleural effusion or pneumothorax is identified. IMPRESSION: No acute cardiopulmonary disease. Report Dictated on --- Final --- Dictated: 12/09/2020 11:06 am Dictating Physician: MD JOLLEY LAURA Signed Date and Time: 12/09/2020 11:06 am Signed by: MD JOLLEY LAURA Transcribed Date and Time: 12/09/2020 11:06 [facility] Work Phone: William, [facility] Incoming Radiology Results From [facility] - 12/09/2020 11:07 AM EDT Patient Name: JEFFREY SOTO Jr Diagnostic Radiology ACCESSION EXAM DATE/TIME PROCEDURE ORDERING PROVIDER [id number] 12/09/2020 10:48 EDT CR Chest PA & LAT JAMAL WALSH CPT code 92769 Reason For Exam (CR Chest PA & LAT) Nonspecific reaction to cell mediated immunity measurement of gamma interferon antigen response without active tuberculosis Report CLINICAL INDICATION: Positive TB test. Frontal and lateral plain films of the chest were obtained. COMPARISON: None FINDINGS: The cardiac silhouette is within normal limits. No focal consolidation is seen within the lungs. No pleural effusion or pneumothorax is identified. IMPRESSION: No acute cardiopulmonary disease. Report Dictated on --- Final --- Dictated: 12/09/2020 11:06 am Dictating Physician: MD JOLLEY LAURA Signed Date and Time: 12/09/2020 11:06 am Signed by: MD JOLLEY LAURA Transcribed Date and Time: 12/09/2020 11:06 [facility] Work Phone: VL VENOUS UNILATERAL LOWER E XT FOR DVTon 07-21-2018 VL VENOUS UNILATERAL LOWER EXT FOR DVT ORIGINALRIGHT lower extremity venous ultrasound, grayscale study with duplex Doppler exam including color Doppler interrogation and waveform analysis HISTORY: Pain COMPARISON: None The common femoral, superficial femoral and popliteal veins are patent and readily compressible. Color Doppler interrogation and augmentation are normal in these areas. The visible vessels below the knee are unremarkable without evidence for clot. No additional contributory abnormality seen. IMPRESSION: No evidence for DVT on this exam. Interpreted By: Abraham Chadwickreliminary Report By: Abraham Chadwick MDElectronically Signed By: Abraham Chadwick MD Dictated Date: 07/21/2018 2:52:32 PM Prelim Date: 07/21/2018 2:52:32 PM Sign Date: 07/21/2018 2:53:46 PM Normal [facility] ([place]) [place] Note on 07-20-2018 [facility] Note Normal [facility] ([place]) Pat Eduon 07-20-2018 Pat Edu Normal [facility] ([place]) Patient Summary Documentson 07-20-2018 Patient Summary Documents Normal [facility] ([place]) Vital Signs Date Time Vital Sign Value Performing Clinician Facility 01-29-2024 12:18-0400 Body temperature 97.11 [degF] Tasia Cardoza DO Work Phone: [facility] 01-29-2024 12:18-0400 Body weight 176.27 kg Tasia Cardoza DO Work Phone: [facility] Comment on above: verified 01-29-2024 12:18-0400 Diastolic blood pressure 100 mm[Hg] Tasia Cardoza DO Work Phone: [facility] 01-29-2024 12:18-0400 Heart rate 87 /min Tasia Cardoza DO Work Phone: [facility] 01-29-2024 12:18-0400 Respiratory rate 20 /min Tasia Cardoza DO Work Phone: [facility] 01-29-2024 12:18-0400 SaO2% (BldA) [Mass fraction] 96 % Tasia Cardoza DO Work Phone: [facility] 01-29-2024 12:18-0400 Systolic blood pressure 152 mm[Hg] Atsia Cardoza DO Work Phone: [facility] Encounters Encounter Date Encounter Type Care Provider Facility Start: 08-04-2025 End: 08-04-2025 ambulatory MAU TRAN MD Facility:A Start: 04-29-2025 End: 04-29-2025 ambulatory MAU TRAN MD Facility:A Start: 01-26-2025 End: 01-26-2025 ambulatory MAU TRAN MD Facility:A Start: 10-27-2024 End: 10-27-2024 ambulatory NONE PHYSICIAN Facility:A Start: 01-29-2024 End: 01-29-2024 ambulatory TASIA CARDOZA Facility:[id number] Start: 01-29-2024 End: 01-29-2024 Patient encounter procedure Tasia Cardoza DO Work Phone: [place] Comment on above: Sinobronchitis (Prim neftali Dx) Start: 12-09-2020 End: 12-09-2020 Subsequent hospital visit by physician Jamal Walsh Work Phone: [facility] Comment on above: 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; Psoriatic arthritis (HCC) Start: 07-21-2018 End: 07-22-2018 Patient encounter procedure VALERY RAMOS Facility:[facility] Start: 07-20-2018 End: 07-20-2018 Emergency department patient visit VALERY RAMOS Facility:B Procedures Date Procedure Procedure Detail Performing Clinician Start: 02-01-2022 Lipid 1996 panel - S radha or Plasma Tasia Cardoza DO Work Phone: Start: 12-09-2020 Radiologic exam ches t 2 views Jamal Walsh Work Phone: Plan of Treatment Date Care Activity Detail Author Start: 02-01-2027 Lipid panel Lipid Screening [facility] Start: 05-24-2024 Influenza vaccination Influenz a Vaccine (Season Ended) [facility] Start: 09-23-2023 Behavioral Health Screening Behavioral Health Screening [facility] Start: 05-24-2023 Covid-19 Vaccine ( season) Covid-19 Vaccine ( season) [facility] Start: 05-24-2020 Influenza vaccination Flu vaccine (# 1) [facility] Work Phone: Start: 2019 Diabetes screen Diabetes screen [facility] Work Phone: Start: 2019 Lipid panel Lipid screen [facility] Work Phone: Start: 12-02-1998 DTaP/Tdap/Td vaccine (1 - Tdap) DTaP/Tdap/Td vaccine (1 - Tdap) [facility] Work Phone: Start: 12-02-1998 Hepatitis B Vaccine (1 of 3 - 19+ 3-dose series) Hepatitis B Vaccine (1 of 3 - 19+ 3-dose series) [facility] Start: 12-02-1998 Urine microalbumin profile DTaP,Tdap,Td Vaccine (1 - Tdap) [facility] Start: 12-02-1997 Hepatitis C screening Hepatitis C Sc reening [facility] Start: 12-02-1997 HIV screening HIV Screening [facility] Start: 1995 COVID-19 Vaccine (1) COVID-19 Vaccin e (1) [facility] Work Phone: Start: 12-02-1994 HIV screening HIV screen [facility] Work Phone: Start: 12-02-1980 Varicella vaccine (1 of 2 - 2-dose childhood series) Varicella vaccine (1 of 2 - 2-dose childhood series) [facility] Work Phone: Start: 1979 Hepatitis C screening Hepatitis C sc reen [facility] Work Phone: End: 12-09-2020 Fungal Antibody Panel Fungal Antibody Panel Lab Routine Positive QuantiFERON-TB Gold test Psoriatic arthritis (HCC) 1 Occurrences starting 12/09/2020 until 12/09/2020 [facility] Work Phone: Comment on above: 1 Occurrences starti ng 12/09/2020 until 12/09/2020 Fungal Antibody Panel Fungal Ant ibody Panel Lab Routine Positive QuantiFERON-TB Gold test Psoriatic arthritis (HCC) 12/09/2020 11:03 AM EDT [facility] Work Phone: End: 12-09-2020 Quantiferon TB Gold Quantiferon TB Gold Microbiology Routine Positive QuantiFERON-TB Gold test Psoriatic arthritis (HCC) 1 Occurrences starting 12/09/2020 until 12/09/2020 [facility] Work Phone: Comment on above: 1 Occurrences starti ng 12/09/2020 until 12/09/2020 Quantiferon TB Gold Quantiferon TB Gold Microbiology Routine Positive QuantiFERON-TB Gold test Psoriatic arthritis (HCC) 12/09/2020 11:03 AM EDT [facility] Work Phone: Immunizations Immunization Date Immunization Notes Care Provider Pamela abraham 07-02-2019 influenza virus vacc ine, unspecified formulation Tasia Cardoza DO Work Phone: [facility] Payers Date Payer Category Payer Unknown [id number] 2020 Unknown APRYL LYONS PPO [id number] 2020-Present [phone] [id number] [place] [address] PPO [id number] 2018 Unknown [id number] 1979 Unknown [id number] 1979 Unknown [id number] 1979 Unknown [id number] 1979 Unknown [id number] 1979 Unknown [id number] 1979 Unknown [id number] Social History Date Type Detail Facility Start: 12-09-2020 Tobacco smoking stat [facility] Current some day [facility] Work Phone: History of tobacco use Cigar Smoker [facility] Work Phone: Start: 12-09-2020 Tobacco use and exposure Current use r [facility] Work Phone: History of tobacco use Chews Tobacco [facility] Work Phone: Start: 12-09-2020 End: 01-29-2024 Alcohol intake Current drinker of alcohol (finding) [facility] Work Phone: Start: 12-09-2020 History SDOH Alcohol Frequency 3 [facility] Work Phone: Start: 12-09-2020 History SDOH Alcohol Std Drinks [facility] Work Phone: Start: 12-09-2020 History SDOH Social Connections Phone [facility] Work Phone: Start: 12-09-2020 History SDOH Social Connections Get Together [address] [facility] Work Phone: Start: 12-09-2020 Tobacco Comment Patient states cigar usage and chewing tobacco use is very limited. [facility] Work Phone: Start: 12-09-2020 Alcohol Comment alcohol consum ption to all types. [facility] Work Phone: Start: 1980 Sex Assigned At Not on file [facility] Work Phone: Exposure to SARS-CoV -2 (event) Not sure [facility] Work Phone: Start: 01-29-2024 [facility] Start: 01-29-2024 Tobacco use and exposure Smoke less tobacco non-user [facility] Start: 01-29-2024 Alcohol intake [facility] Start: 01-29-2024 Tobacco use panel [facility] Progress note 01-29-2024 Note Date & Type Note Facility 01-29-2024 Note HNO ID: [id number] Author: TASIA CARDOZA, DO Service: ? Author Type: Physician Type: Progress Notes Filed: 01/29/2024 12:55 Note Text: Jeffrey Soto is a 43 year old MALE who presents with Cough (Productive /Discolored //Started 3 days ago ), Chest Congestion (Started 3 days aog), and Breathing Problem (Wheezing /Started 3 days ago /) HPI History reviewed. No pertinent past medical history. There is no problem list on file for this patient. Current Outpatient Medications Medication Sig Dispense Refill TALTZ [employer] 80 mg/mL pen tacrolimus (PROTOPIC) 0.1 % ointment Apply to affected area. amoxicillin (AMOXIL) 875 mg tablet Take 1 tablet by mouth two times a day for 10 days. 20 tablet 0 benzonatate (TESSALON PERLES) 100 mg capsule Take 2 capsules by mouth three times a day as needed for up to 7 days. 42 capsule 0 chlorpheniramine (CHLORTRIMETON) 4 mg tablet Take 1 tablet by mouth every 6 hours as needed for up to 7 days. 28 tablet 0 albuterol HFA (PROVENTIL HFA) 90 mcg/actuation inhaler Inhale 2 Puffs as instructed every 4 hours as needed for wheezing/shortness of breath. (Patient not taking: Reported on 01/29/2024) 8 g 0 No current facility-administered medications for this visit. Social History Tobacco Use Smoking status: Never Smokeless tobacco: Never Vaping Use Vaping Use: Never used Substance Use Topics Alcohol use: Yes Alcohol/week: 6.0 standard drinks of alcohol Types: 6 Cans of beer per week Drug use: Never Alcohol Use: Approximately 3.6 oz/week [which includes 6 Cans of beer per week] Tobacco Use: Never History reviewed. No pertinent family history. Review of Systems Constitutional: Positive for chills, fever and malaise/fatigue. HENT: Positive for congestion, sinus pain and sore throat. Respiratory: Positive for cough, sputum production, shortness of breath and wheezing. All other systems reviewed and are negative. BP 152/100 Pulse 87 Temp (Src) 97.1 (Temporal) Resp 20 Wt 388 lb 9.6 oz (176.3kg) SpO2 96% Physical Exam Nursing note reviewed. Exam conducted with a oakes machine operator present. Constitutional: Appearance: Normal appearance. HENT: Head: Normocephalic. Left Ear: Tympanic membrane normal. Nose: Congestion and rhinorrhea present. Mouth/Throat: Pharynx: Posterior oropharyngeal erythema present. Eyes: Extraocular Movements: Extraocular movements intact. Conjunctiva/sclera: Conjunctivae normal. Pupils: Pupils are equal, round, and reactive to light. Cardiovascular: Rate and Rhythm: Normal rate and regular rhythm. Pulses: Normal pulses. Heart sounds: Normal heart sounds. Pulmonary: Effort: Pulmonary effort is normal. Breath sounds: Normal breath sounds. Abdominal: General: Bowel sounds are normal. Musculoskeletal: General: Normal range of motion. Lymphadenopathy: Cervical: Cervical adenopathy present. Skin: General: Skin is warm. Capillary Refill: Capillary refill takes 2 to 3 seconds. Neurological: General: No focal deficit present. Psychiatric: Mood and Affect: Mood normal. ASSESSMENT/PLAN: 1. Sinobronchitis - ICD9: 473.9, 490, ICD10: J32.9, J40 - AMOXICILLIN 875 MG TABLET - BENZONATATE 100 MG CAPSULE - CHLORPHENIRAMINE 4 MG TABLET Tasia Cardoza [facility] History of Present illness Narrative 01-29-2024 Tasia Cardoza DO - 01/29/2024 12:52 PM EDT Note Date & Type Note Facility 01-29-2024 History of Presen t illness Narrative Jeffrey Soto is a 43 year old MALE who presents with Cough (Productive /Discolored //Started 3 days ago ), Chest Congestion (Started 3 days aog), and Breathing Problem (Wheezing /Started 3 days ago /) HPI History reviewed. No pertinent past medical history. There is no problem list on file for this patient. Current Outpatient Medications Medication Sig Dispense Refill TALTZ [employer]OIN[employer]OR 80 mg/mL pen tacrolimus (PROTOPIC) 0.1 % ointment Apply to affected area. amoxicillin (AMOXIL) 875 mg tablet Take 1 tablet by mouth two times a day for 10 days. 20 tablet 0 benzonatate (TESSALON PERLES) 100 mg capsule Take 2 capsules by mouth three times a day as needed for up to 7 days. 42 capsule 0 chlorpheniramine (CHLORTRIMETON) 4 mg tablet Take 1 tablet by mouth every 6 hours as needed for up to 7 days. 28 tablet 0 albuterol HFA (PROVENTIL HFA) 90 mcg/actuation inhaler Inhale 2 Puffs as instructed every 4 hours as needed for wheezing/shortness of breath. (Patient not taking: Reported on 01/29/2024) 8 g 0 No current facility-administered medications for this visit. Social History Tobacco Use Smoking status: Never Smokeless tobacco: Never Vaping Use Vaping Use: Never used Substance Use Topics Alcohol use: Yes Alcohol/week: 6.0 standard drinks of alcohol Types: 6 Cans of beer per week Drug use: Never Alcohol Use: Approximately 3.6 oz/week [which includes 6 Cans of beer per week] Tobacco Use: Never History reviewed. No pertinent family history. Review of Systems Constitutional: Positive for chills, fever and malaise/fatigue. HENT: Positive for congestion, sinus pain and sore throat. Respiratory: Positive for cough, sputum production, shortness of breath and wheezing. All other systems reviewed and are negative. BP 152/100 Pulse 87 Temp (Src) 97.1 (Temporal) Resp 20 Wt 388 lb 9.6 oz (176.3kg) SpO2 96% Physical Exam Nursing note reviewed. Exam conducted with a oakes machine operator present. Constitutional: Appearance: Normal appearance. HENT: Head: Normocephalic. Left Ear: Tympanic membrane normal. Nose: Congestion and rhinorrhea present. Mouth/Throat: Pharynx: Posterior oropharyngeal erythema present. Eyes: Extraocular Movements: Extraocular movements intact. Conjunctiva/sclera: Conjunctivae normal. Pupils: Pupils are equal, round, and reactive to light. Cardiovascular: Rate and Rhythm: Normal rate and regular rhythm. Pulses: Normal pulses. Heart sounds: Normal heart sounds. Pulmonary: Effort: Pulmonary effort is normal. Breath sounds: Normal breath sounds. Abdominal: General: Bowel sounds are normal. Musculoskeletal: General: Normal range of motion. Lymphadenopathy: Cervical: Cervical adenopathy present. Skin: General: Skin is warm. Capillary Refill: Capillary refill takes 2 to 3 seconds. Neurological: General: No focal deficit present. Psychiatric: Mood and Affect: Mood normal. ASSESSMENT/PLAN: 1. Sinobronchitis - ICD9: 473.9, 490, ICD10: J32.9, J40 - AMOXICILLIN 875 MG TABLET - BENZONATATE 100 MG CAPSULE - CHLORPHENIRAMINE 4 MG TABLET Tasia Cardoza documented in this encounter [facility] Progress note 09-18-2021 Note Date & Type Note Facility 09-18-2021 Note HNO ID: [id number] Author: Bharathi Gaspar APRN.[employer] Service: ? Author Type: Nurse Practitioner Type: Progress Notes Filed: 09/18/2021 5:09 PM Note Text: Telemedicine Visit - Distance Health Virtual Visit Note Patient seen on [facility] Online platform. Location of patient: [place] History of Present Illness Jeffrey Soto is a 40 year old year old male who presents for the past 3 weeks with symptoms that are:gradually worsening. Symptoms include: Positive for chest congestion, cough with intermittent purulent sputum production, slight wheezing at night time; reports he does have purulent nasal drainage mostly in AM Negative for Fever, Chills/Sweats, Hemoptysis, SOB, MERAZ, Nasal congestion, PND, Face pain/pressure, Headache, Teeth pain , Otalgia, Sore throat, Fatigue, Nausea, Emesis and Diarrhea Oral intake: Adequate Tobacco use: No Second hand smoke exposure: No Recent exposure to strep:No Sick contacts: None Recent travel: None OTC meds/remedies that patient has tried: Mucinex. History reviewed. No pertinent past medical history. No past surgical history on file. No family history on file. Social History Tobacco Use - Smoking status: Not on file - Smokeless tobacco: Not on file Substance Use Topics - Alcohol use: Not on file - Drug use: Not on file No current outpatient medications on file. No current facility-administered medications for this visit. ALLERGIES No Known Allergies Video Exam (Examination performed via Video enabled technology) General appearance: Alert, oriented, pleasant, in NAD :Yes Ill appearing :No Lethargic appearing :No Eyes: Sclera clear :Yes Conjunctiva without erythema :Yes Ears: Tragus / outer ear tenderness by self palpation :No Oropharynx: mild erythema, +purulent post-nasal drainage Frontal sinus tenderness by self palpation;No Maxillary sinus tenderness by self palpation :No Tender cervical adenopathy by self palpation :No Respiratory distress :No Coughing noted :Yes Audible wheezing noted :Yes - end expiratory wheeze ASSESSMENT/PLAN: 1. Sinobronchitis - ICD9: 473.9, 490, ICD10: J32.9, J40 - DOXYCYCLINE MONOHYDRATE 100 MG CAPSULE - ALBUTEROL SULFATE HFA 90 MCG/ACTUATION AEROSOL INHALER - PREDNISONE 20 MG TABLET - Sinus drainage most likely causing cough with purulent sputum - Doxycycline as prescribed - Albuterol inhaler as discussed - Prednisone as prescribed - Discussed medication dosage, usage, goals of therapy, and side effects. - Hold multivitamin, calcium supplementation, and avoid dairy products while taking this antibiotic - Doxycycline may cause stomach upset. Take Doxycycline with food and avoid laying down for 30 min - 1 hour after taking - You may get sunburned more easily with this medication. Avoid sun exposure, sunlamps, and tanning beds. Use sunscreen and wear clothing and eyewear that protects you from the sun. - Red flags discussed for need for in person care - All questions answered Bharathi Gaspar APRN.SADE If you let us know who your primary care provider is, we will send them a notification of today?s visit through our electronic medical records system. Since not all providers have access to our notifications, we strongly encourage you to share the following record of today?s visit with your primary care provider at your next visit. This will help in providing you the best care. If you do not have an established Primary Care physician and would like to continue care with a [facility] Virtual Primary Care physician, please ask your provider to place a Establish Primary Care order. Use [employer] to manage your care, wherever you are, 15/04, on your mobile device or computer. [employer] connects you to [employer] so you can access all your health information in one place and also schedule and request virtual appointments with primary care providers. [facility] Evaluation note Note Date & Type Note Facility Evaluation note Diagnosis Sinobronchitis- Primary Unspecified sinusitis (chronic) documented in this encounter [facility] Summary Purpose Family History No Family History Records FoundNo Family History Records FoundNo Family History Records FoundNo Family History Records FoundNo Family History Records FoundNo Family History Records FoundNo Family History Records Found Advance Directives No Advanced Directives Records FoundNo Advanced Directives Records FoundNo Advanced Directives Records FoundNo Advanced Directives Records FoundNo Advanced Directives Records FoundNo Advanced Directives Records FoundNo Advanced Directives Records Found Assessments Diagnosis 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 DATE CREATED AUTHOR AUTHOR'S ORGANIZ ATION 12/14/[address] [facility] DATE CREATED AUTHOR AUTHOR'S ORGANIZ ATION 05/19/[address] [facility] DATE CREATED AUTHOR AUTHOR'S ORGANIZ ATION 01/31/2024 [facility] DATE CREATED AUTHOR AUTHOR'S ORGANIZ ATION 08/05/2025 [facility] Source Comments (unrecognize d section and content) In the event this informatio n is protected by the Federal Confidentiality of Alcohol and Drug Abuse Patient Records regulations: The Federal rules restrict any use of the information to criminally investigate or prosecute any alcohol or drug abuse patient.[facility] Reason for Visit (unrecogniz ed section and content) Reason Comments Cough Productive Discolore d Started 3 days ago Chest Congestion Started 3 days aog Breathing Problem Wheezing Started 3 d ays ago FOR RECORDS PERTAINING TO PATIENTS WHO ARE OR HAVE BEEN ENROLLED IN A CHEMICAL DEPENDENCY/SUBSTANCEABUSE PROGRAM, SOME INFORMATION MAY BE OMITTED. This clinical summary was aggregated from multiple sources. Caution should be exercised in using it in the provision of clinical care. This summary normalizes information from multiple sources, and as a consequence, information in this document may materially change the coding, format and clinical context of patient data. In addition, data may be omitted in some cases. CLINICAL DECISIONS SHOULD BE BASED ON THE PRIMARY CLINICAL RECORDS. [employer] provides no warranty or guarantee of the accuracy or completeness of information in this document.
[2025-09-14 12:08] LABS: QNTFERON TB Mitogen Value > 10.00 IU/mL (.); QNTFERON TB Nil Value 0.05 IU/mL (.); QNTFERON TB1+ Ag Value 0.06 IU/mL (.); QNTFERON TB2+ Ag Value 0.05 IU/mL (.); QNTIFERON TB Positive Criteria Negative (Negative)
== END | disposition home or self-care (01) ==
LOC: MTLAB 08:50
PROVIDERS: Referring Provider Dermatology; Visit Provider Dermatology
DX: L40.0 Psoriasis vulgaris (principal)
CPT/HCPCS: 36415; 86480